=== PATIENT | female | born 1970 | race Caucasian/White ===

== ENCOUNTER → 2016-12-15 | Outpatient (CLI) | payer BC ==
--- NOTE | 2016-12-16 08:20 | MG ---
Examination: Bilateral screening mammogram. Clinical history: Routine screening. Technique: Digital CC and MLO views of both breasts were obtained. Computer aided detection analysis was performed and used during the interpretation. Comparison: 05/02/2015. Findings: The breasts are composed of scattered fibroglandular densities. Benign-appearing calcifications are noted in the breasts bilaterally. No suspicious mass, area of architectural distortion or suspicious cluster of microcalcifications is noted. Impression: 1. No mammographic evidence of malignancy. BI-RADS category 2-benign findings. Recommend routine annual screening mammogram. Diagnostic CAD was utilized and reviewed. * 0 (ZERO) - ASSESSMENT INCOMPLETE; ADDITIONAL IMAGING IS NEEDED. * 0C - ASSESSMENT INCOMPLETE, NEEDS ADDITIONAL IMAGING EVALUATION AND/OR PRIOR MAMMOGRAMS FOR COMPAR THIEN. * 1/1 (ONE) - NEGATIVE. * 2/II (TWO) - BENIGN FINDINGS. * 3/III (THREE) - PROBABLY BENIGN FINDING; SHORT INTERVAL FOLLOW-UP SUGGESTED. * 4/IV (FOUR) - SUSPICIOUS ABNORMALITY; BIOPSY SHOULD BE CONSIDERED. * 5/V - HIGHLY SUSPICIOUS OF MALIGNANCY; BIOPSY SHOULD BE PERFORMED. * 6/IV - KNOWN BIOPSY PROVEN MALIGNANCY-APPROPRIATE ACTION SHOULD BE TAKEN. A NEGATIVE X-RAY REPORT SHOULD NOT DELAY BIOPSY IF A DOMINANT OR CLINICALLY SUSPICIOUS MASS IS PRESENT; 4 TO 8 PERCENT OF CANCERS ARE NOT IDENTIFIED BY X-RAY. A NEGATIVE REPORT MAY REINFORCE THE CLINICAL IMPRESSION. ADENOSIS AND DENSE BREASTS MAY OBSCURE AN UNDERLYING NEOPLASM. Reported By:
== END ==
LOC: RAD 09:03
PROVIDERS: ATTEND Specialist
DX: Z12.31 Encounter for screening mammogram for malignant neoplasm of breast (principal)
CPT/HCPCS: 77067

== ENCOUNTER → 2016-12-15 | Outpatient (CLI) | payer SELFPAY ==
--- NOTE | 2016-12-15 10:30 | CT ---
CORONARY CALCIUM SCORE CLINICAL INDICATION: Screening. COMPARISON: None PROCEDURE: Gated images of the coronary arteries. Coronary artery calcium scoring was performed. FINDINGS: Coronary calcium scoring - 1 LM: 0 LAD: 0 LCX: 0 RCA: 1 IMPRESSION: 1. Calcium score of 1. This places the patient at approximately the 50th-75th percentile for females of equivalent age. Minimal identifiable plaque. Less than 10% risk of coronary artery disease. Reported By:
== END ==
LOC: RAD 09:07
PROVIDERS: ATTEND Internal Medicine
DX: Z13.6 Encounter for screening for cardiovascular disorders (principal)

== ENCOUNTER → 2017-09-17 | Outpatient (CLI) | payer BC ==
[~2017-09-17] MED LIST: NS 100 ML IV 100 ML IV ONE
--- NOTE | 2017-09-17 11:56 | CT ---
Examination: CT of the chest with contrast. Clinical history: Swelling to left side of upper chest and base of neck on left side for 1 month, his tory of goiter. Technique: Multiple axial images were obtained from the lung apices down to the lung bases, following the intravenous administration of 150 mL of Omnipaque 350. Dose reduction techniques including autom ated exposure control (AEC) and adjustment of mA and kV were utilized. Comparison: 08/08/2013. Findings: The right lobe of the thyroid is surgically absent. 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 A thyroid ultra sound is recommended for further evaluation. The heart is borderline enlarged. The thoracic aorta and remainder of the great vessels are within normal limits. No hilar or mediastinal mass is noted. No enlarged lymph nodes, by CT criteria, are noted in the medi astinum, jennifer or axilla bilaterally. No central obstructing bronchial lesion is noted. No pleural or pericardial effusion is noted. There is a stable 5 mm noncalcified pulmonary nodule present in the lateral aspect of the right lower lobe (series 5, image 32). Stability of this nodule for a period of more than 4 years is reassuring and findings are probably benign. Minor dependent airspace disease is seen in the lower lobes bilaterally, likely due to passive atelec tasis. Surgical clips are noted in the gallbladder fossa, consistent with a prior cholecystectomy. There is a small 1 cm enhancing focus seen at the dome of the liver, which was also evident on the prior exami [facility] [place] and is essentially stable, probably representing a benign hemangioma. The remainder of the vis ualized portion of the upper abdomen is unremarkable. Degenerative changes are noted in the spine. Tiny vertebral body endplate deformities, consistent wit h Schmorl's nodes are present at multiple levels in the lower thoracic spine. No acute osseous abnorm ality is noted. Impression: 1. The right lobe of the thyroid is surgically absent. The left lobe of the thyroid is bulky and hete rogeneous in appearance with multiple low-density lesions associated with the left lobe. A thyroid ul trasound is recommended for further evaluation. 2. Borderline enlarged heart. 3. Stable 5 mm right lower lobe pulmonary nodule. The nodule has been stable for more than 4 years an d is probably benign. 4. Minor dependent airspace disease is seen in the lower lobes bilaterally, likely due to passive ate lectasis. 5. There is a small 1 cm enhancing focus seen at the dome of the liver, which was also evident on the prior examination and is essentially stable, probably representing a benign hemangioma. 6. There are postsurgical changes from a prior cholecystectomy. Reported By:
--- NOTE | 2017-09-17 13:28 | CT ---
Examination: CT of the soft tissues of the neck with contrast. Clinical history: Swelling to left side of upper chest and base of neck for 1 month, history of goite r. Technique: Multiple axial images were obtained from the skull base to the thoracic inlet, prior to an d following the intravenous administration of 150 mL of Omnipaque 350. Sagittal and coronal reformatt ed images were obtained. Dose reduction techniques including automated exposure control (AEC) and adj ustment of mA and kV were utilized. Comparison: 08/08/2013. Findings: The visualized portions of the brain, paranasal sinuses and lung apices are unremarkable. The right lobe of the thyroid is surgically absent. The left lobe of the thyroid is bulky and heterog eneous, measuring 5.9 x 2.9 x 2.2 cm in size. There are multiple small masses/nodules associated with the left lobe of the thyroid. The largest measures 1.6 x 1.0 cm and is heterogeneous in appearance. Multiple additional smaller nodules are also noted. A thyroid ultrasound is recommended for a more co mplete evaluation. The parotid and submandibular glands are within normal limits. The nasopharynx, oropharynx, base of the tongue, hypopharynx, larynx and subglottic regions are withi n normal limits. Scattered stable small and borderline enlarged lymph nodes are present in the anterior neck. No enlar ged lymph nodes, by CT criteria, are noted in the anterior neck. No acute osseous abnormality is noted. Impression: 1. The right lobe of the thyroid is surgically absent. The left lobe of the thyroid is bulky and hete rogeneous, measuring 5.9 x 2.9 x 2.2 cm in size. There are multiple small masses/nodules associated w ith the left lobe of the thyroid. The largest measures 1.6 x 1.0 cm and is heterogeneous in appearanc e. Multiple additional smaller nodules are also noted. A thyroid ultrasound is recommended for a more complete evaluation. Reported By:
== END | disposition home or self-care (01) | DRG 645 ==
LOC: RAD 08:22
PROVIDERS: ATTEND Internal Medicine
DX: E04.8 Other specified nontoxic goiter (principal); E89.0 Postprocedural hypothyroidism; R91.1 Solitary pulmonary nodule
CPT/HCPCS: 70491; 71260; A4222